=== PATIENT | female | born 1945 | race Caucasian/White ===

== ENCOUNTER → 2018-10-09 | Outpatient (CLI) | payer MEDICARE ==
--- NOTE | 2018-10-09 15:47 | Diagnostic Imaging Report ---
TECHNIQUE: Magnetic resonance imaging of the LEFT KNEE was performed WITHOUT injected contrast. HISTORY: Left knee pain COMPARISON: None available. FINDINGS: LIGAMENTS AND TENDONS: ACL: Intact PCL: Intact Collateral ligaments: Intact Iliotibial band: Unremarkable Popliteal tendon: Intact Extensor mechanism: Intact JOINT: Menisci: Medial: Degenerative signal with horizontal tear extending to the tibial articular surface involving the posterior horn. Lateral: Complex tearing with maceration of the body and posterior horn. Articular Cartilage: Medial Compartment: Diffuse partial thickness cartilage loss Lateral Compartment: Diffuse high-grade cartilage loss with areas of full-thickness erosion Patellofemoral Compartment: Diffuse partial thickness cartilage loss Joint Fluid: Moderate effusion and Chadwick's cyst. BONE: No focal or infiltrative bone marrow replacing abnormality. No acute fracture. SOFT TISSUES: Otherwise, unremarkable. IMPRESSION: Tricompartmental degenerative arthrosis, lateral compartment predominant. Medial meniscus horizontal tear and lateral meniscus maceration. Signed by: Dr. Nash Bassett M.D. on 10/09/2018 3:44 PM
--- NOTE | 2018-10-09 15:48 | Diagnostic Imaging Report ---
Right knee MRI without contrast. History: Knee pain. Decreased range of motion. Pain not responding to conservative management Comparison: None. Technique: Multiplanar multi-sequence MRI of the knee without contrast. Findings: Medial compartment: There is a complex tear involving the posterior horn and body segments of the medial meniscus. The medial compartmental articular cartilage surfaces are within with regions or fraying in the fissuring. There is mild underlying bone marrow edema. There are peripheral marginal osteophytes. The medial collateral ligament complex is intact. Lateral compartment: There is a complex tear involving the posterior horn and body segments of the lateral meniscus. There are regions of full-thickness articular cartilage loss in the lateral compartment with underlying bone marrow edema. There are peripheral marginal osteophytes. The lateral collateral ligament complex is intact. Intercondylar notch: There is scarring and attenuation the anterior cruciate ligament. The posterior cruciate ligament is intact. Patellofemoral compartment: There is articular cartilage fraying and fissuring in the patellofemoral compartment with underlying bone marrow edema. Extensor mechanism: The quadriceps and patellar tendons are normal. Other findings: There is a joint effusion and synovitis. There is no acute fracture, subluxation or avascular necrosis. There is a lobulated septated Chadwick's cyst. IMPRESSION: Complex lateral meniscus tear with advanced degenerative arthrosis in the lateral compartment of the knee. Complex medial meniscus tear with less severe degenerative arthrosis in the medial compartment of the knee. Articular cartilage fraying and deep fissuring in the patellofemoral compartment with mild underlying bone marrow edema. Scarring and attenuation of the anterior cruciate ligament. Joint effusion, synovitis and lobulated septated Chadwick's cyst. Signed by: Dr. Chino Oviedo M.D. on 10/09/2018 3:45 PM
== END ==
LOC: MRI 13:56
PROVIDERS: ATTEND Internal Medicine Rheumatology
DX: M25.562 Pain in left knee (principal); M25.561 Pain in right knee; M17.0 Bilateral primary osteoarthritis of knee

== ENCOUNTER 2022-10-30 11:41 | Emergency (ER) | payer MEDICARE ==
[~2022-10-30] VITALS: Ht 162.6 cm; Wt 99.8 kg
[2022-10-30 12:27] LABS: BASOPHILS # (AUTO) 0.1 (0.0-0.1); BASOPHILS % 0.7 % (0.0-1.0); EOSINOPHILS # (AUTO) 0.1 (0.0-0.4); EOSINOPHILS % 1.8 % (0.0-6.0); HEMATOCRIT 42.3 % (34.2-44.1); HEMOGLOBIN 13.7 g/dL (12.0-16.0); LYMPHOCYTES # (AUTO) 2.1 (1.0-3.2); LYMPHOCYTES % 28.8 % (18.0-39.1); MEAN CORPUSCULAR HEMOGLOBIN 29.8 pg (28-32); MEAN CORPUSCULAR HGB CONC 32.4 g/dL (31-35); MEAN CORPUSCULAR VOLUME 92.2 fL (81-99); MONOCYTES # (AUTO) 0.5 (0.2-0.8); MONOCYTES % 6.4 % (4.4-11.3); NEUTROPHILS # (AUTO) 4.5 (2.1-6.9); NEUTROPHILS % 61.7 % (38.7-80.0); PLATELET COUNT 298 x10e3/uL (140-360); RED BLOOD COUNT 4.59 x10e6/uL (3.6-5.1); RED CELL DISTRIBUTION WIDTH 13.8 % (11.7-14.4)
[2022-10-30 12:50] LABS: CLARITY,URINE CLEAR (CLEAR); COLOR,URINE YELLOW (YELLOW); KETONES,URINE NEGATIVE (NEGATIVE); LEUKOCYTE ESTERASE ,URINE NEGATIVE (NEGATIVE); NITRITE,URINE NEGATIVE (NEGATIVE); PROTEIN,URINE DIPSTICK NEGATIVE (NEGATIVE); URINE UROBILINOGEN 0.2 mg/dL (0.2 - 1)
[2022-10-30 12:53] LABS: BACTERIA,URINE FEW /HPF; EPITHELIAL CELLS,URINE RARE /LPF; RBC,URINE 0-5 /HPF (0-5); WBC,URINE (MAN) 0-5 /HPF (0-5)
[2022-10-30 12:57] LABS: ALBUMIN 3.8 g/dL (3.5-5.0); ALBUMIN/GLOBULIN RATIO 1.1 (0.8-2.0); ANION GAP 15.4 mmol/L (8-16); CALCIUM 9.1 mg/dL (8.4-10.2); CREATININE, SERUM 0.82 mg/dL (0.57-1.11); POTASSIUM 4.4 mmol/L (3.5-5.1)
[2022-10-30] MEDS ORDERED: IOPAMIDOL 370 MG/ML 100 ML INFUS..BTL INJ ONE (13:26)
[2022-10-30 17:01] VITALS: BP 185/80; PULSE 88; RESP 18; O2SAT 100
== END 2022-10-30 16:30 | disposition home or self-care (01) ==
LOC: ER 11:46
DX: R53.82 Chronic fatigue, unspecified (principal); F41.9 Anxiety disorder, unspecified; I10 Essential (primary) hypertension; E78.5 Hyperlipidemia, unspecified; F32.A Depression, unspecified; R94.31 Abnormal electrocardiogram [ECG] [EKG]
CPT/HCPCS: 36415; 70491; 71260; 80053; 81001; 84484; 85025; 93005; 99284; Q9967